=== PATIENT | male | born 1990 | race Caucasian/White ===

== ENCOUNTER 2019-05-16 09:48 | Outpatient (CLI) | payer BC ==
--- NOTE | 2019-05-16 16:52 | MRI ---
MRI BRAIN WITH AND WITHOUT CONTRAST: 05/16/2019 HISTORY: Elevated prolactin levels. COMPARISON: None. TECHNIQUE: Multiplanar, multisequence MR imaging of the brain obtained with and without contrast using a pituita ry mass protocol. FINDINGS: The diffusion-weighted imaging demonstrates no evidence for acute infarction. There is mild mucosal thickening involving the ethmoid air cells bilaterally. Arterial flow voids at the axial level of the skull base appear grossly unremarkable on the T2 weighted imaging. There is no midline shift, mass effect, or ventricular enlargement seen. The optic chiasm, suprasellar cistern, and pituitary stalk are unremarkable. There is no sellar or s uprasellar mass lesion identified. The cavernous carotid arteries appear unremarkable. Dynamic post contrast imaging through the pituitary gland appears unremarkable. Delayed post contras t imaging through the pituitary gland appears unremarkable as well. Whole brain post contrast imagin g is within normal limits. IMPRESSION: Unremarkable contrast enhanced brain MRI using pituitary mass protocol. No sellar or suprasellar mas s lesion is apparent on this examination. POS: [facility]
== END 2019-05-16 09:49 | disposition home or self-care (01) ==
LOC: SCSMRI 09:48
PROVIDERS: ATTEND Urology
DX: E22.9 Hyperfunction of pituitary gland, unspecified (principal)
CPT/HCPCS: 70553